=== PATIENT | male | born 2000 | race American Indian/Alaskan Native ===

== ENCOUNTER 2020-02-12 22:10 | Emergency (ER) | payer SELFPAY ==
[2020-02-12 23:46] VITALS: BP 116/74
[2020-02-13] MEDS ORDERED: predniSONE 20 MG TAB PO ONE (02:36)
--- NOTE | 2020-02-13 02:36 | Emergency Department Report ---
ED Dizziness HPI - General Chief Complaint: Neuro Symptoms/Deficit Stated Complaint: TINGLE IN ARMS,BODY NUMBNESS,DIZZY Time Seen by Provider: 02/13/20 02:14 Source: patient Mode of arrival: Ambulatory Limitations: No Limitations - History of Present Illness Initial Comments: CC: "I had been hitting the treatments too much." HPI: This is a 19-year-old male with history of mild intermittent asthma who presents with shortness of breath for the past week. He has had wheezing especially in the morning. Consequently he has used 3-4 breathing treatments daily for the past week. While driving he developed diffuse body tingling and lightheadedness. He pulled over to the side of the road while driving. He tried to walk it off. He exited the highway and parked at a gas station. Due to inability to drive he called 911. He admits that his albuterol nebulizer solution is approximately 4 years old. That was the last time he required medical treatment. Flovent controlled his symptoms. Consequently he has not required hospitalization or ED visit since childhood. He is currently symptom-free. He denies chest pain. Denies cough. He denies sick contacts. He denies leg pain. He denies paralysis. He suspects that he may have used too many treatments today. MD Complaint: dizziness, lightheadedness -: Gradual, This evening Timing: gradual onset Description: lightheadedness History of Same: No History of Trauma: No Severity: mild Improves With: rest, other (time) Associated Symptoms: other (Diffuse body tingling in both arms both legs) - Related Data Previous Rx's Medication Instructions Recorded Last Taken Type ALBUTEROL NEB's [Proventil 0.083% 1 neb IH TID PRN #1 box 02/13/20 Unknown Rx NEBS] Albuterol Mdi (or & Nicu Only) 2 puff IH QID PRN #8.5 gram 02/13/20 Unknown Rx [ProAir HFA Inhaler] predniSONE [Deltasone] 3 tab PO QDAY 3 Days #9 tab 02/13/20 Unknown Rx Allergies Allergy/AdvReac Type Severity Reaction Status Date / Time No Known Allergies Allergy Unverified 02/12/20 23:53 ED Review of Systems ROS: Stated complaint: TINGLE IN ARMS,BODY NUMBNESS,DIZZY Other details as noted in HPI Comment: All other systems reviewed and negative Constitutional: denies: fever, malaise Respiratory: shortness of breath, wheezing. denies: cough Cardiovascular: denies: chest pain Gastrointestinal: denies: abdominal pain, nausea, vomiting ED Past Medical Hx - Past Medical History Previous Medical History?: Yes Hx Asthma: Yes - Surgical History Past Surgical History?: No - Social History Smoking Status: Never Smoker Substance Use Type: None - Medications Home Medications: Home Medications Medication Instructions Recorded Confirmed Last Taken Type ALBUTEROL NEB's [Proventil 0.083% 1 neb IH TID PRN #1 box 02/13/20 Unknown Rx NEBS] Albuterol Mdi (or & Nicu Only) 2 puff IH QID PRN #8.5 gram 02/13/20 Unknown Rx [ProAir HFA Inhaler] predniSONE [Deltasone] 3 tab PO QDAY 3 Days #9 tab 02/13/20 Unknown Rx ED Physical Exam - General Limitations: No Limitations General appearance: alert, in no apparent distress, other (Pleasant, no acute distress, ambulatory without difficulty) - Head Head exam: Present: atraumatic, normocephalic - Eye Eye exam: Present: normal appearance - ENT ENT exam: Present: mucous membranes moist - Neck Neck exam: Present: normal inspection, full ROM - Respiratory Respiratory exam: Present: normal lung sounds bilaterally. Absent: respiratory distress, wheezes, rales, rhonchi, chest wall tenderness, accessory muscle use, decreased breath sounds, prolonged expiratory - Cardiovascular Cardiovascular Exam: Present: regular rate, normal rhythm, normal heart sounds. Absent: systolic murmur, diastolic murmur, rubs, gallop - GI/Abdominal GI/Abdominal exam: Present: soft, normal bowel sounds. Absent: distended, tenderness, guarding, rebound - Rectal Rectal exam: Present: deferred - Extremities Exam Extremities exam: Present: normal inspection - Neurological Exam Neurological exam: Present: alert, oriented X3 - Psychiatric Psychiatric exam: Present: normal affect, normal mood - Skin Skin exam: Present: warm, dry, intact, normal color. Absent: rash ED Course Vital Signs 02/12/20 22:34 Temperature 98.0 F Pulse Rate 89 Respiratory 18 Rate Blood Pressure 116/74 O2 Sat by Pulse 98 Oximetry ED Medical Decision Making - Medical Decision Making Mr. Chang has had shortness of breath and wheezing throughout the week. Today while driving he developed lightheadedness and tingling generalized. Differential diagnosis includes: hypoxia due to asthma, adverse effect of albuterol, arrhythmia Patient is PERC negative for PE. He is symptom free. I suspect a benign process likely overzealous use of likely albuterol solution. I will treat Mr. Chang for asthma exacerbation with prednisone burst therapy, prescription for albuterol MDI and albuterol nebulizer solution. Critical care attestation.: If time is entered above; I have spent that time in minutes in the direct care of this critically ill patient, excluding procedure time. ED Disposition Clinical Impression: Acute asthma exacerbation, Medication adverse effect Disposition: [id number] TO HOME OR SELFCARE Is pt being admited?: No Does the pt Need Aspirin: No Condition: Stable Instructions: Asthma (ED) Prescriptions: predniSONE [Deltasone] 3 tab PO QDAY 3 Days #9 tab Albuterol Mdi (or & Nicu Only) [ProAir HFA Inhaler] 2 puff IH QID PRN #8.5 gram PRN Reason: Shortness Of Breath ALBUTEROL NEB's [Proventil 0.083% NEBS] 1 neb IH TID PRN #1 box PRN Reason: Wheezing Referrals: GEORGI RICKETTS MD [Staff Physician] - 3-5 Days
== END 2020-02-13 02:59 | disposition home or self-care (01) ==
LOC: ED 22:10
DX: J45.901 Unspecified asthma with (acute) exacerbation (principal); T50.905A Adverse effect of unspecified drugs, medicaments and biological substances, initial encounter; Y92.89 Other specified places as the place of occurrence of the external cause; Z79.899 Other long term (current) drug therapy
CPT/HCPCS: 99282